=== PATIENT | female | born 1990 | race Caucasian/White ===

== ENCOUNTER → 2018-12-16 | Outpatient (CLI) | payer OTHER | LOC: COL.RAD 07:03 | DX: H53.8 Other visual disturbances (principal); R51 Headache; Z82.49 Family history of ischemic heart disease and other diseases of the circulatory system ==

== ENCOUNTER → 2019-07-23 | Outpatient (CLI) | payer OTHER | LOC: COL.RAD 07-22 08:15 | DX: E05.90 Thyrotoxicosis, unspecified without thyrotoxic crisis or storm (principal); R10.2 Pelvic and perineal pain ==